=== PATIENT | female | born 1965 | race Hispanic/Latino ===

== ENCOUNTER 2018-04-14 19:53 | Emergency (ER) | payer OTHER | END 2018-04-14 21:14 | disposition home or self-care (01) | LOC: EDH 19:53 | DX: S80.861A Insect bite (nonvenomous), right lower leg, initial encounter (principal); E11.9 Type 2 diabetes mellitus without complications; I10 Essential (primary) hypertension; W57.XXXA Bitten or stung by nonvenomous insect and other nonvenomous arthropods, initial encounter; Y93.89 Activity, other specified; Y92.89 Other specified places as the place of occurrence of the external cause; Y99.8 Other external cause status ==

== ENCOUNTER 2021-07-29 11:23 | Emergency (ER) | payer OTHER ==
[~2021-07-29] VITALS: Ht 157.5 cm; Wt 99.8 kg
[2021-07-29] MEDS ORDERED: KETOROLAC 30MG VIAL (30MG/ML) IM SCH (12:30)
[2021-07-29] MEDS ORDERED: IBUP-2070 PO (13:25)
[2021-07-29] MEDS ORDERED: CYCL10TA16 PO (13:25)
[2021-07-29 14:00] VITALS: BP 152/88
== END 2021-07-29 14:00 | disposition home or self-care (01) ==
LOC: EDH 11:23
DX: S76.911A Strain of unspecified muscles, fascia and tendons at thigh level, right thigh, initial encounter (principal); E11.9 Type 2 diabetes mellitus without complications; E78.00 Pure hypercholesterolemia, unspecified; I10 Essential (primary) hypertension; X58.XXXA Exposure to other specified factors, initial encounter; Y93.89 Activity, other specified; Y92.89 Other specified places as the place of occurrence of the external cause; Y99.8 Other external cause status
CPT/HCPCS: 73552; 96372; 99283; J1885